=== PATIENT | male | born 1965 | race Hispanic/Latino ===

== ENCOUNTER 2019-02-07 07:33 | Day surgery (SDC) | payer OTHER ==
[~2019-02-07] VITALS: Ht 180.3 cm; Wt 90.7 kg
[~2019-02-07 07:33] MED LIST: SODIUM CHLORIDE 0.9% 1000ML 1,000 ML IV ONE
[2019-02-07 08:27] VITALS: BP 130/75
[2019-02-07] MEDS ORDERED: LOSARTAN (08:27)
[2019-02-07] MEDS ORDERED: ALLOPURINAL (08:27)
[2019-02-07] MEDS ORDERED: PROPOFOL 10 MG/ML 20ML VIAL IV ONE ×2 (09:55→10:09)
[2019-02-07 10:15] VITALS: BP 100/58
[2019-02-07 10:20] VITALS: BP 128/82
[2019-02-07 10:30] VITALS: BP 126/82
[2019-02-07 10:42] VITALS: BP 124/78
== END 2019-02-07 10:59 | disposition home or self-care (01) ==
LOC: DAH 07:33 → ENDO 07:33
PROVIDERS: ATTEND Internal Medicine
DX: Z12.11 Encounter for screening for malignant neoplasm of colon (principal); K57.30 Diverticulosis of large intestine without perforation or abscess without bleeding; K64.0 First degree hemorrhoids; I10 Essential (primary) hypertension; Z79.899 Other long term (current) drug therapy; K63.5 Polyp of colon
CPT/HCPCS: 45385; A4606; J2704 ×2; J7030